=== PATIENT | male | born 1980 | race Caucasian/White ===

== ENCOUNTER 2016-03-22 15:28 | Emergency (ER) | payer OTHER ==
[2016-03-22 15:59] VITALS: BP 150/87; PULSE 92; RESP 18; TEMP 98.4; O2SAT 96
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
== END 2016-03-22 16:46 | disposition home or self-care (01) ==
LOC: CED 15:28
DX: S39.012A Strain of muscle, fascia and tendon of lower back, initial encounter (principal); M54.6 Pain in thoracic spine; Z72.0 Tobacco use
CPT/HCPCS: G0463-PO

== ENCOUNTER 2016-06-23 20:11 | Emergency (ER) | payer OTHER ==
[2016-06-23 20:31] VITALS: BP 143/109; PULSE 120; RESP 18; TEMP 98.8; O2SAT 98
--- NOTE | 2016-06-23 21:08 | EDPHY ---
H & P Time Seen by Provider: 06/23/16 20:48 HPI/ROS: This patient reports injuring his back shortly after going off o'clock at work lifting heavy solar panel and twisting while lifting with pain to the right thoracic back paraspinous region of moderate intensity that worsens with movement. He reports the pain is severe with certain movements. He had ibuprofen-400 mg prior to arrival. He reports minimal improvement from the ibuprofen. ROS: Musculoskeletal: No midline neck or back pain. No other injuries. Neuro: No numbness tingling or focal weakness. No bowel or bladder incontinence. Integumentary: No skin rash 5 point ROS is otherwise negative. 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 General: No acute distress. Eyes: Pupils 4 mm, equal and react to light. Extraocular motions are intact. Lungs: No respiratory distress. Back: No midline tenderness. Patient has moderate right thoracic paraspinous muscular tenderness that reproduces his symptoms. Mild limitation for flexion due to increased pain without maneuver. Cardiac: Brisk capillary refill is intact throughout. Skin: No rash or pallor. Neuro: GCS 15. He maintains normal light touch sensation bilateral upper extremities and 5/5 strength bilaterally upper extremities with 2+ symmetric biceps, triceps and brachioradialis DTRs as well as 2+ patellar DTRs bilaterally. Initial differential diagnosis: Upper back muscle strain versus herniation without radiculopathy Constitutional: Initial Vital Signs Temperature (C) 37.1 C 06/23/16 20:27 Heart Rate 120 H 06/23/16 20:27 Respiratory Rate 18 06/23/16 20:27 Blood Pressure 143/109 H 06/23/16 20:27 O2 Sat (%) 98 06/23/16 20:27 O2 Delivery Mode Room Air Allergies/Adverse Reactions: No Known Allergies Allergy (Verified 06/23/16 20:26) Home Medications: Medication Instructions Recorded Hydrocodone/APAP 5/325 [Gillett 1 - 2 tab PO Q4PRN PRN #15 tab 06/23/16 5/325 (*)] Methocarbamol [Robaxin 750 mg (*)] 750 - 1,500 mg PO QID PRN #30 tab 06/23/16 MDM/Departure - [facility] ED Course/Re-evaluation: Discussion: Findings consistent with back strain with muscle spasm. I counseled patient regarding this. No radiculopathy or other concerning findings. - Depart Disposition: Home, Routine, Self-Care Clinical Impression: Muscle strain of right upper back Qualifiers: Encounter type: initial encounter Qualified Code(s): S29.012A - Strain of muscle and tendon of back wall of thorax, initial encounter Condition: Good Instructions: Thoracic Back Strain (ED) Additional Instructions: Diagnosis: Thoracic back strain Plan: Continue ibuprofen-600 mg per 6 hours as needed for pain Methocarbamol muscle relaxant and Tylenol or Vicodin. No driving, alcohol work on Vicodin. Limit your lifting for the next 2-7 days until symptoms improve. Return for any significant worsening despite treatment plan Call your primary care physician to arrange follow-up appointment for further evaluation for any ongoing symptoms have resolved over the next 5-7 days. Prescriptions: Hydrocodone/APAP 5/325 [Gillett 5/325 (*)] 1 - 2 tab PO Q4PRN PRN #15 tab PRN Reason: Pain Methocarbamol [Robaxin 750 mg (*)] 750 - 1,500 mg PO QID PRN #30 tab PRN Reason: Muscle Spasms Referrals: NONE *PRIMARY CARE P,. [Primary Care Provider] - As per Instructions Rex Benoit DO [Doctor of Osteopathy] - As per Instructions
== END 2016-06-23 21:15 | disposition home or self-care (01) ==
LOC: CED 20:11
DX: S29.012A Strain of muscle and tendon of back wall of thorax, initial encounter (principal); F17.200 Nicotine dependence, unspecified, uncomplicated; X58.XXXA Exposure to other specified factors, initial encounter